=== PATIENT | female | born 1995 | race African-American/Black ===

== ENCOUNTER 2020-12-24 12:10 | Outpatient (CLI) | payer OTHER, SELFPAY | END 2020-12-24 12:11 | disposition home or self-care (01) | PROVIDERS: PCP Internal Medicine Geriatric Medicine; Visit Provider Student in an Organized Health Care Education/Training Program | DX: O20.0 Threatened abortion (principal); Z3A.00 Weeks of gestation of pregnancy not specified | CPT/HCPCS: 36415; 86850; 86900; 86901 ==

== ENCOUNTER 2020-12-28 12:41 | Outpatient (CLI) | payer OTHER, SELFPAY ==
--- NOTE | ~2020-12-28 | US_ITS ---
US OB <= 14 weeks fetus DATE: 12/28/2020 13:06 INDICATION: viability and age determination TECHNIQUE: Real-time imaging, Doppler analysis COMPARISON: None FINDINGS: The uterus measures 7.2 cm height, 3.4 cm anteroposterior and 4.9 cm width. The central end ometrial echo complex measures 3.7 mm AP dimension. No intrauterine gestational sac is identified. The ovaries are unremarkable. No pelvic mass or abnormal pelvic fluid collection is identified. IMPRESSION: No evidence of intrauterine gestational sac. Unremarkable pelvic ultrasound examination Reviewed, dictated and finalized at [facility]. Reviewed, dictated and finalized at location A. IMPRESSION: No evidence of intrauterine gestational sac. Unremarkable pelvic ul trasound examination
== END 2020-12-28 12:42 | disposition home or self-care (01) ==
PROVIDERS: PCP Internal Medicine Geriatric Medicine; Visit Provider Student in an Organized Health Care Education/Training Program
DX: Z36.87 Encounter for antenatal screening for uncertain dates (principal)
CPT/HCPCS: 76801

== ENCOUNTER 2021-01-03 17:19 | Outpatient (CLI) | payer OTHER, SELFPAY ==
[2021-01-03 18:08] LABS: Beta HCG Quantitative 6.32 mIU/ML
== END 2021-01-03 17:20 | disposition home or self-care (01) ==
PROVIDERS: PCP Internal Medicine Geriatric Medicine; Visit Provider Student in an Organized Health Care Education/Training Program
DX: O20.9 Hemorrhage in early pregnancy, unspecified (principal)
CPT/HCPCS: 36415; 84702

== ENCOUNTER 2021-01-05 17:21 | Outpatient (CLI) | payer OTHER, SELFPAY | END 2021-01-05 17:22 | disposition home or self-care (01) | LOC: ANHLAB 17:23 | PROVIDERS: PCP Internal Medicine Geriatric Medicine; Visit Provider Student in an Organized Health Care Education/Training Program | DX: R39.9 Unspecified symptoms and signs involving the genitourinary system (principal) | CPT/HCPCS: 87077; 87086; 87088 ==

== ENCOUNTER 2021-01-10 16:21 | Outpatient (CLI) | payer OTHER, SELFPAY ==
[2021-01-10 17:13] LABS: Beta HCG Quantitative < 2.39 mIU/ML
== END 2021-01-10 16:22 | disposition home or self-care (01) ==
LOC: ANHLAB 16:32
PROVIDERS: PCP Internal Medicine Geriatric Medicine; Visit Provider Student in an Organized Health Care Education/Training Program
DX: O02.1 Missed abortion (principal)
CPT/HCPCS: 36415; 84702

== ENCOUNTER 2021-02-20 17:18 | Outpatient (CLI) | payer OTHER, SELFPAY | END 2021-02-20 17:19 | disposition home or self-care (01) | PROVIDERS: PCP Internal Medicine Geriatric Medicine; Visit Provider Student in an Organized Health Care Education/Training Program | DX: N91.2 Amenorrhea, unspecified (principal) | CPT/HCPCS: 36415; 84702 ==

== ENCOUNTER 2021-02-22 17:21 | Outpatient (CLI) | payer OTHER, SELFPAY | END 2021-02-22 17:22 | disposition home or self-care (01) | LOC: ANHLAB 17:22 | PROVIDERS: PCP Internal Medicine Geriatric Medicine; Visit Provider Student in an Organized Health Care Education/Training Program | DX: N91.2 Amenorrhea, unspecified (principal) | CPT/HCPCS: 36415; 84702 ==

== ENCOUNTER 2021-02-23 17:00 | Outpatient (CLI) | payer OTHER, SELFPAY ==
--- NOTE | ~2021-02-23 | US_ITS ---
US OB <=14 wk fetus w TV DATE: 02/23/2021 17:06 INDICATION: Abdominal/pelvic cramping today. Threatened TECHNIQUE: Real-time imaging and Doppler analysis COMPARISON: 12/28/2020 obstetrical ultrasound; no evidence of intrauterine gestational sac was noted a t that time. FINDINGS: The uterus measures 9.1 cm vertical dimension, 4.5 cm anteroposterior dimension. A gestatio nal sac is identified in the lower uterine segment. Sac size is consistent with 5 weeks 4 days. Sac s ize would be consistent with 5 weeks 4 days estimated age. Yolk sac is identified. No pole or c ardiac motion is visualized. . Findings are suggestive of impending . Right ovary measures 2.6 x 2.1 x 2.4 cm. Left ovary measures 2.4 x 2 x 2 cm. There is vascular flow t o the ovaries. No pelvic mass or abnormal free pelvic fluid collection is detected. IMPRESSION: Lower uterine gestational sac with 5 week 4 day estimated gestational sac size and no vis ualized pole or cardiac motion. There is fluid in the endometrial cavity. Impending abort ion is suspected. Consider follow-up obstetrical ultrasound examination. Reviewed, dictated and finalized at [facility]. Reviewed, dictated and finalized at location [facility]. IMPRESSION: Lower uterine gestational sac with 5 week 4 day estimated gestation al sac size and no visualized pole or cardiac motion. There is flui d in the endometrial cavity. Impending is suspected. Consider follow-up obstetrical ultrasound examination.
[2021-02-23 17:17] LABS: Hematocrit 35.1 % (37.0-47.0); Hemoglobin 10.6 g/dL (12.0-15.0); Immature Platelet Fraction Pct 7.3 % (0.9-11.2); Mean Corpuscular HGB Conc 30.2 g/dl (32-36); Mean Corpuscular Hemoglobin 22.5 pg (26-34); Mean Corpuscular Volume 74.5 fl (80-100); Mean Platelet Volume 11.2 fl (7.4-10.4); Platelet Count Result 232 k/mm3 (150-375); Red Blood Count 4.71 M/mm3 (4.2-5.4); Red Cell Distribution Width 16.4 % (11.5-14.5); White Blood Count 6.8 K/mm3 (4.5-10.0)
[2021-02-26 07:04] LABS: Progesterone 8.4 ng/mL (***)
== END 2021-02-23 17:01 | disposition home or self-care (01) ==
LOC: ANHIMG 17:01
PROVIDERS: PCP Internal Medicine Geriatric Medicine; Visit Provider Student in an Organized Health Care Education/Training Program
DX: O20.0 Threatened abortion (principal)
CPT/HCPCS: 36415; 76801; 76817; 84144; 84702; 85027; 85055

== ENCOUNTER 2021-02-24 17:35 | Outpatient (CLI) | payer OTHER, SELFPAY | END 2021-02-24 17:36 | disposition home or self-care (01) | PROVIDERS: PCP Internal Medicine Geriatric Medicine; Visit Provider Student in an Organized Health Care Education/Training Program | DX: O20.0 Threatened abortion (principal) | CPT/HCPCS: 36415; 84702 ==

== ENCOUNTER 2021-03-04 13:03 | Outpatient (CLI) | payer OTHER, SELFPAY | END 2021-03-04 13:04 | disposition home or self-care (01) | LOC: ANHLAB 13:04 | PROVIDERS: PCP Internal Medicine Geriatric Medicine; Visit Provider Student in an Organized Health Care Education/Training Program | DX: R39.9 Unspecified symptoms and signs involving the genitourinary system (principal) | CPT/HCPCS: 87086 ==

== ENCOUNTER 2021-03-24 17:21 | Outpatient (CLI) | payer OTHER, SELFPAY ==
[2021-03-24 18:13] LABS: Beta HCG Quantitative < 2.39 mIU/ML
== END 2021-03-24 17:22 | disposition home or self-care (01) ==
PROVIDERS: PCP Internal Medicine Geriatric Medicine; Visit Provider Student in an Organized Health Care Education/Training Program
DX: O02.1 Missed abortion (principal)
CPT/HCPCS: 36415; 84702

== ENCOUNTER 2021-12-01 09:16 | Outpatient (CLI) | payer OTHER, SELFPAY ==
--- NOTE | 2021-12-01 09:27 | ECHO_ITS ---
Patient Info Name: Siomara Odell Age: 26 years : 1995 Gender: Female Ht: 67 in Wt: 158 lbs BSA: 1.85 m2 HR: 81 bpm BP: 126 / 88 mmHg Technical Quality: Excellent Exam Date: 12/01/2021 9:44 AM Exam Location: [facility] Patient Status: Outpatient Admit Date: 12/01/2021 Staff Ordering Physician: Aleena Tolbert MD Chief Meter Reader: Yaquelin Proctor RDCS Attending Provider: Aleena Tolbert MD Referring Physician: Tomasz LOWE; Exam Type: CA echo doppler color flow Study Info Indications O10.019 - Pre-existing essential hypertension complicating , unspecified trimester Complete two-dimensional, color flow and Doppler transthoracic echocardiogram is performed. Summary 1. Complete two-dimensional, color flow and Doppler transthoracic echocardiogram is performed. 2. Left ventricular chamber dimension is normal. 3. Left ventricular systolic function is normal, estimated at 60-65%. 4. The left ventricular diastolic function is normal. 5. E/e' 8 is minimally elevated. 6. Global longitudinal strain is normal at -18.4%. 7. Left atrial chamber dimension is mildly enlarged. 8. There is trace mitral valve regurgitation. 9. There is trace tricuspid valve regurgitation. Left Ventricle E/e' 8 is minimally elevated. Global longitudinal strain is normal at -18.4%. Left ventricular chamber dimension is normal. Left ventricular systolic function is normal, estimated at 60-65%. The left ventricular diastolic function is normal. Right Ventricle Right ventricular systolic function is normal and with normal TAPSE 2.2 cm. Right ventricular chamber dimension is normal. Left Atria Left atrial chamber dimension is mildly enlarged. Right Atria Right atrial chamber dimension is normal. Aortic Valve The aortic valve is trileaflet. There is no aortic valve stenosis. There is no aortic valve regurgitation. Pulmonic Valve There is no pulmonic regurgitation. Mitral Valve There is no mitral valve stenosis. There is trace mitral valve regurgitation. Tricuspid Valve RVSP is not calculated due to an inadequate TR jet. There is trace tricuspid valve regurgitation. Pericardium/Pleural There is no pericardial effusion. Inferior Vena Cava Normal inferior vena cava with >50% collapse upon inspiration consistent with normal right atrial pressure, 5 mmHg. Aorta The aortic root size at the sinus of Valsalva is normal. Left Ventricular Outflow Tract Name Value Normal LVOT 2D LVOT Diameter 2.0 cm LVOT Doppler LVOT Peak Gradient 4 mmHg LVOT Mean Gradient 2 mmHg LVOT VTI 17 cm LVOT VTI/AV VTI Ratio 0.9 LVOT Stroke Volume 52 ml LVOT CO 4.5 l/min LVOT CI 2.4 l/min/m2 Pulmonic Valve Name Value Normal
--- NOTE | 2021-12-01 09:50 | ECG_ITS ---
Measurements Intervals [place] Rate: 81 P: 6 SD: 146 QRS: 25 QRSD: 89 T: 30 QT: 365 QTc: 426 Interpretive Statements SINUS RHYTHM WITH SINUS ARRHYTHMIA BASELINE WANDER- I, II, V3 NORMAL ECG Electronically Signed On 12-01-2021 16:43:08 CDT by Natan Fuller D.O.
== END 2021-12-01 09:17 | disposition home or self-care (01) ==
LOC: ANHCARD 09:19
PROVIDERS: PCP Internal Medicine Geriatric Medicine; Visit Provider Student in an Organized Health Care Education/Training Program
DX: O10.913 Unspecified pre-existing hypertension complicating pregnancy, third trimester (principal); I49.9 Cardiac arrhythmia, unspecified; Z3A.30 30 weeks gestation of pregnancy
CPT/HCPCS: 93005; 93306

== ENCOUNTER 2022-01-11 12:26 | Outpatient (RCR) | payer OTHER, SELFPAY ==
[2022-01-04 17:56] VITALS: BP 127/81; PULSE 87
--- NOTE | ~2022-01-11 | US_ITS ---
EXAMINATION: US OB BPP wo non-stress DATE: 01/11/2022 14:07 INDICATION: Hypertension during third trimester TECHNIQUE: Real-time pelvic ultrasound was performed. The interpreting radiologist was not present fo r the study. COMPARISON: None. FINDINGS: There is a single living fetus in vertex presentation. The placenta is posterior. heart rate is 142 beats per minute (bpm). The amniotic fluid index is 11.3 cm which is normal. Biophysical profile performed by the technologist: breathing (30 sec sustained breathing in 30 minutes): 2 out of 2 movement (3 gross body movements in 30 minutes): 2 out of 2 tone (one episode of ecudryz-xxtbkyopw-wknjbcx limb movement): 2 out of 2 Amniotic fluid pocket (2 cm): 2 out of 2 Total score: 8 out of 8 IMPRESSION: 1. Single living fetus in vertex presentation. 2. Biophysical profile 8 out of 8. Reviewed, dictated and finalized at location A.
[2022-01-11 13:02] VITALS: BP 132/85; PULSE 104
== END 2022-02-07 10:13 | disposition home or self-care (01) ==
LOC: ANHOBOP 12:26
PROVIDERS: PCP Internal Medicine Geriatric Medicine; Visit Provider Student in an Organized Health Care Education/Training Program
DX: O16.3 Unspecified maternal hypertension, third trimester (principal); Z3A.35 35 weeks gestation of pregnancy
CPT/HCPCS: 59025; 76819

== ENCOUNTER 2022-01-14 16:12 | Inpatient (IN) | payer OTHER, SELFPAY ==
[2022-01-14] VITALS (16 sets, daily range): BP systolic 115–141; BP diastolic 68–97; PULSE 76–100; TEMP 36.8–37.3; BMI 27.4
--- NOTE | 2022-01-14 17:27 | P.PNAN_ITS ---
Anes - Eval Pre Procedure Procedure: labor epidural Date/Time: 01/14/22 17:27 Surgeon: surya Preop Diagnosis: pain during labor Pre Op Diagnosis: iol Patient Data Age: 26 Gender: F Height: Weight: Last Vital Signs Pulse 83 01/14/22 17:15 BP 141/94 H 01/14/22 17:15 Allergies Allergy/AdvReac Type Severity Reaction Status Date / Time Sulfa (Sulfonamide Allergy Unknown Rash Verified 01/13/22 14:44 Antibiotics) Home Medications Medication Instructions Recorded Confirmed Type acetaminophen 500 mg tablet 500 mg PO Q6H PRN 07/27/21 History prenat.vits,mai,jry-kpjz-kxmbi 1 tablet PO DAILY 07/27/21 History blood pressure monitor #1 ea 10/06/21 10/06/21 Rx ferrous sulfate 325 mg (65 mg 325 mg PO DAILY #90 tabs 11/15/21 Rx iron) tablet Patient hx anesthesia problems: none Family hx anesthesia problems: none Results Review: All pre-operative results and documents have been reviewed as part of the pre- operative evaluation. [facility] Past Medical History Medical History Healthy adult History of miscarriage x 2 12/2020 Surgical History Surgical History No pertinent past surgical history Family History Family History Mother Patient's mother is in good health Social History Social History Smoking status: Never smoker Second hand tobacco smoke exposure: No Alcohol intake: never Substance use: never Substance use type: marijuana Gender identity (if verbalized by the patient): Female Spiritual care concerns: No Exam Day of Procedure 01/14/22 17:27
[2022-01-14 17:31] LABS: Basophils Absolute Auto 0.1 K/mm3 (0.0-0.1); Basophils Percent Auto 0.7 % (0.2-1.2); Eosinophils Absolute Auto 0.1 K/mm3 (0-0.3); Eosinophils Percent Auto 0.9 % (0-4.4); Hemoglobin 9.7 g/dL (12.0-15.0); Immature Granulocyte Absolute 0.03 K/mm3 (0.00-0.031); Immature Granulocyte Percent A 0.4 % (0-0.5); Immature Platelet Fraction Pct 14.7 % (0.9-11.2); Lymphocytes Absolute Auto 1.71 K/mm3 (0.9-3.2); Lymphocytes Percent Auto 22.7 % (18.3-44.2); Mean Corpuscular HGB Conc 30.3 g/dl (32-36); Mean Corpuscular Hemoglobin 21.9 pg (26-34); Mean Corpuscular Volume 72.2 fl (80-100); Monocytes Absolute Auto 0.9 K/mm3 (0.1-0.6); Monocytes Percent Auto 11.7 % (2.6-8.5); Neutrophils Absolute Auto 4.8 K/mm3 (1.3-6.7); Neutrophils Percent Auto 63.6 % (45.5-73.1); Platelet Count Result 147 k/mm3 (150-375); Red Blood Count 4.43 M/mm3 (4.2-5.4); Red Cell Distribution Width 16.7 % (11.5-14.5); White Blood Count 7.5 K/mm3 (4.5-10.0)
[2022-01-14] MEDS: DINOPROSTONE 10 MG VAG INSERT VAGINAL (17:53)
[2022-01-14 17:56] LABS: Alanine Aminotransferase 12 U/L (6-35); Albumin Level 3.4 g/dL (3.5-5.1); Anion Gap 5 mmol/L (8-16); Anisocytosis 3+ (NORMAL); Aspartate Amino Transferase 20 U/L (14-36); Bilirubin,Total 0.4 mg/dL (0.2-1.3); Blood Urea Nitrogen 16 mg/dL (7-17); Carbon Dioxide 22 mmol/L (22-30); Chloride 108 mmol/L (98-107); Estimated Glomerular Filt Rate > 60; Glucose 80 mg/dL (65-110); Potassium 3.8 mmol/L (3.4-5.0); Sodium 135 mmol/L (137-145); Uric Acid 4.7 mg/dL (2.5-7.5)
[2022-01-14 17:57] LABS: Hypochromasia 1+ (NORMAL); Macrocytosis 1+ (NORMAL)
[2022-01-14 18:23] LABS: Alkaline Phosphatase 2037 U/L (38-126)
--- NOTE | 2022-01-14 18:56 | LDADM ---
This patient, Siomara Odell, was admitted to Labor/Delivery/Recovery 108 on 01/14/22 at 16:12. Plans for labor, pain management and were discussed with patient. Patient/family oriented to hospital policies and general routines including ID bracelet, bed and alarms, visiting hours, pain management, procedures, bathroom and other care routines, personal items, smoking policy, room service/diet and guest tray routines, security routines, and visiting hours. Patient/Family are encouraged to report perceived risks to care and to ask questions if they do not understand what they are told or what they should do. See OBIX for further documentation.
[2022-01-14 20:30] LABS: Amphetamine Screen Urine Negative (Negative); Barbiturate Screen Urine Negative (Negative); Benzodiazepines Screen Urine Negative (Negative); Cannabinoid Screen Urine Negative (Negative); Cocaine Screen Urine Negative (Negative); Methadone Screen Urine Negative (Negative); Opiate Screen Urine Negative (Negative); Phencyclidine Screen Urine Negative (Negative)
[2022-01-15] VITALS (202 sets, daily range): BP systolic 109–163; BP diastolic 66–111; PULSE 70–144; TEMP 36.6–37.4; O2SAT 93–100
[2022-01-15] MEDS: OXYTOCIN 30 UNITS/NS 500 ML 30 UNITS/500 ML BAG IV CONT (06:55)
[2022-01-15] MEDS: LACTATED RINGERS 1,000 ML 125 ML IV CONT ×3 (06:55→20:37)
[2022-01-15 09:17] LABS: Rapid Plasma Reagin Non-Reactive (NonReactive)
--- NOTE | 2022-01-15 10:08 | PM.IMHP ---
H&P: HPI History of Present Illness Date/Time: 01/15/22 10:08 Chief Complaint: Patient is a 26 y/o at 37 weeks by LMP 04/30/2021 with an EDC 02/04/2022 consistent with 8 week ultrasound. She is here for MIL with cervidil due to chronic hypertension and IUGR (5%) with recommendations for delivery at 37 weeks. She has been getting reassuring surveillance testing. PNC also significant for anemia. she is on iron supplementation. Labs reviewed. GBS neg. She denies headaches, scotomata or RUQ pain. Labs reviewed. Platelets 147. Review of Systems Review of Systems: All systems reviewed & are unremarkable except as noted in HPI and below Constitutional: Constitutional: Reports no additional constitutional complaints and Denies headache(s) Eyes: Eyes: Denies spots in vision ENT: Reports system reviewed and no additional complaints, except as documented and Denies headache(s) Cardiovascular: Cardiovascular: Denies chest pain and Denies dyspnea Respiratory: Respiratory: Denies dyspnea Gastrointestinal: Gastrointestinal: Reports no additional gastrointestinal complaints Genitourinary: Genitourinary: Reports amenorrhea Musculoskeletal: Musculoskeletal: Reports no additional musculoskeletal complaints Integumentary/Breasts: Skin/Breast: Denies breast mass and Denies rash Neurologic: Denies headache(s) Psychiatric: Psychiatric: Reports no additional psychiatric complaints PMFSH Past Medical History Medical History Healthy adult History of miscarriage x 2 12/2020 Surgical History Surgical History No pertinent past surgical history Family History Family History Mother Patient's mother is in good health Social History Social History Smoking status: Never smoker Second hand tobacco smoke exposure: No Alcohol intake: never Substance use: never Substance use type: marijuana Gender identity (if verbalized by the patient): Female Spiritual care concerns: No Meds Home Medications and Allergies Home Medications Medication Instructions Recorded Confirmed Type acetaminophen 500 mg tablet 500 mg PO Q6H PRN 07/27/21 History prenat.vits,mai,apu-ebgv-eotrx 1 tablet PO DAILY 07/27/21 History blood pressure monitor #1 ea 10/06/21 10/06/21 Rx ferrous sulfate 325 mg (65 mg 325 mg PO DAILY #90 tabs 11/15/21 Rx iron) tablet Allergies Allergy/AdvReac Type Severity Reaction Status Date / Time Sulfa (Sulfonamide Allergy Unknown Rash Verified 01/13/22 14:44 Antibiotics) Vital Signs Vital Signs - 24 hr 01/14/22 16:32 01/14/22 16:45 01/14/22 17:00 Temperature Pulse Rate 86 96 93 Blood Pressure 141/97 H 121/80 141/96 H Oxygen Delivery 01/14/22 17:15 01/14/22 17:30 01/14/22 18:00 Temperature Pulse Rate 83 82 79 Blood Pressure 141/94 H 141/94 H 134/95 H Oxygen Delivery 01/14/22 18:15 01/14/22 18:30 01/14/22 18:45 Temperature 98.2 F Pulse Rate 80 86 94 Blood Pressure 136/93 H 130/87 115/91 H Oxygen Delivery 01/14/22 19:00 01/14/22 19:15 01/14/22 19:30 Temperature Pulse Rate 100 92 87 Blood Pressure 135/80 127/89 139/94 H Oxygen Delivery 01/14/22 19:45 01/14/22 23:38 01/14/22 23:45 Temperature Pulse Rate 78 76 88 Blood Pressure 141/90 H 138/93 H 118/68 Oxygen Delivery 01/15/22 00:00 01/15/22 00:15 01/15/22 01:00 Temperature Pulse Rate 84 83 89 Blood Pressure 129/79 128/79 139/93 H Oxygen Delivery 01/15/22 03:55 01/14/22 22:30 01/15/22 02:30 Temperature 99.1 F 99.1 F Pulse Rate 90 Blood Pressure 134/97 H Oxygen Delivery 01/15/22 05:53 01/15/22 05:55 01/15/22 07:04 Temperature 98.9 F Pulse Rate 93 93 Blood Pressure 136/96 H 140/94 H Oxygen Delivery
--- NOTE | 2022-01-15 10:26 | PM.OBPNLAB ---
Pain Control Date/time seen: 01/15/22 1026 FHT 135, cat 1, ctx q 2-3 mild, cervix 1.5/70/-2, AROM, clear. Continue pitocin induction.
--- NOTE | 2022-01-15 22:48 | PM.OBPRVD ---
OB - Delivery Note Procedure Delivery date: 01/15/22 Procedure: A 26-year-old now who presented to labor and delivery on the evening of 01/14/2022 at 37 weeks gestation for scheduled induction labor secondary to chronic hypertension and intrauterine growth restriction. Initial cervical exam was approximately fingertip dilated. Induction of labor was begun with Cervidil. Cervidil was placed and remained in place for approximately 12 hours after which it was removed. Cervical exam was approximately 1-2 cm dilated. Pitocin was started for labor augmentation. Artificial rupture of membranes was performed at 10:03 a.m. Clear amniotic fluid was noted. Pitocin was continuously titrated throughout the remainder of the morning, afternoon, and evening. Patient became uncomfortable and requested an epidural for pain management which was placed without difficulty. Patient continued to make progressive cervical change. An IUPC was placed for enhanced monitoring. Patient was noted to be fully dilated at 9:40 p.m. Patient was encouraged to push and found to be pushing well. She was prepped and draped for delivery. At 10:33 p.m., patient delivered head atraumatically and without difficulty in JARVIS presentation. Occiput restituted to maternal left side. With subsequent push, the infant's neck, shoulders, and rest of body also delivered without difficulty. Infant was crying spontaneously. Infant's nose and mouth were suctioned with bulb suction. Infant was placed on maternal abdomen where care was assumed by awaiting nursing staff. Delayed cord clamping was performed for approximately 60 seconds. The cord was clamped and cut. A segment of cord was collected for cord gases. Cord blood was collected. The placenta was delivered spontaneous and intact. On inspection, no lacerations were noted. Uterine fundus was noted be firm with massage. Estimated blood loss for entire delivery was 200 cc. Infant was a liveborn male infant, Apgars 9 and 9, weighing 5 lbs. 1 oz. Both mother and baby doing well at end of delivery. Events: Chronic Hypertension and Intrauterine Growth Restriction (IUGR) Induction method: Per Cervidil Protocol Delivery augmentation: Rupture of Membranes and Pitocin Delivery monitor: External FHT, External Uterine and Internal Uterine Route of delivery: Laceration Description: None Specimen: Yes (placenta and cord, cord blood, and cord gases) Quantitative Blood Loss (ml): 200 Anesthesia type: Epidural Disposition: Floor Complications: No immediate complications [place] Baby Date of : 01/15/22 Time of : 22:33 Weeks of gestation at delivery: 37 (37.1) gender: Male Weight (pounds): 5 Weight (ounces): 1 presentation: vertex position: Left Occiput Anterior Placenta delivery description: Spontaneous Cord Vessel Description: 3 Vessels and Delayed Cord Clamping (x60s) score one minute: 9 score five minutes: 9 AMG Delivery Billing Delivery Delivery: Delivery Charge
[2022-01-15] MEDS: OXYTOCIN 30 UNITS/NS 500 ML 30 UNITS/500 ML BAG 125 UNITS IV CONT (23:00)
[2022-01-16] VITALS (11 sets, daily range): BP systolic 129–149; BP diastolic 85–107; PULSE 80–123; RESP 16–18; TEMP 36.4–37.5; O2SAT 98–100
[2022-01-16] MEDS: WITCH HAZEL 40 PADS 1 PAD TOPICAL (00:46)
[2022-01-16] MEDS: BENZOCAINE 20% AER SPR (*SP) 56 GM CAN 1 SPRAY TOPICAL (00:46)
--- NOTE | 2022-01-16 01:01 | OBPPTRN ---
Patient transferred to post room # 285 via wheelchair. Support person present. Oriented to unit, room, information board, rooming in, admission packet and security measures. Patient verbalizes understanding.
[2022-01-16] MEDS: IBUPROFEN 600 MG TABLET PO ×2 (01:28→08:16)
[2022-01-16 04:47] LABS: Hematocrit 33.4 % (37.0-47.0); Hemoglobin 9.7 g/dL (12.0-15.0)
[2022-01-16] MEDS: POLYSACCHARIDE IRON COMPLEX 150 MG CAPSULE PO ×2 (08:16→17:00)
[2022-01-16] MEDS: DOCUSATE SODIUM 100 MG CAPSULE PO ×2 (08:16→17:00)
[2022-01-16] MEDS: MULTIVIT/MIN/PREN/FOL AC/IRON TABLET 1 TAB PO (08:16)
--- NOTE | 2022-01-16 08:26 | P.PNOB_ITS ---
OB - PN: Subj Subjective Date/time seen: 01/16/22 08:26 Patient doing well this morning. Denies any abdominal or pelvic pain. Minimal lochia. Ambulating without difficulty. Voiding well. Denies any headache, chest pain, shortness of breath, nausea, vomiting, right upper quadrant tenderness, or visual disturbances. OB - PN: Obj Data Labs CBC & Chem 7: 01/16/22 04:37 01/14/22 17:22 Labs: Laboratory Results - last 24 hr 01/14/22 01/16/22 17:22 04:37 Hgb 9.7 L Hct 33.4 L RPR Non-reactive OB - PN A/P Assessment and Plan (1) Normal spontaneous vaginal delivery: Code(s): O80 - Encounter for full-term uncomplicated delivery Status: Acute Assessment and Plan: PPD#1 doing well continue routine care (2) Chronic hypertension in : Code(s): O10.919 - Unspecified pre-existing hypertension complicating , unspeci fied trimester Status: Acute Assessment and Plan: pt with CHTN labs ordered today pt asymptomatic will continue to monitor Time Spent With Patient Time: Total time spent is greater than 50% in coordination of care (as documented) at patient's floor/unit and/or counseling patient: Review of Systems Review of Systems: All systems reviewed & are unremarkable except as noted in HPI and below Exam Const: General: cooperative, healthy appearing, comfortable and no acute distress GI: Inspection: non-distended GI Palp: Yes Soft to palpation and No Tenderness to palpation present (GI) Other: fundus firm below umbilicus Extrem: Right lower extremity: no edema Left lower extremity: no edema Other: no calf tenderness
--- NOTE | 2022-01-16 08:30 | PC.NURSE ---
Breast pump provided due to maternal preference. Instructions given on cleaning, care, usage, that there should be no pain, pumping schedule for milk production, collection, and storage of human milk. Patient was assessed for correct placement, flange size, to pump for comfort and nipple stretching/stimulation for adequate milk production every 3 hours (8 times in 24 hours).
[2022-01-16 08:55] LABS: Basophils Percent Auto 0.2 % (0.2-1.2); Eosinophils Percent Auto 0.3 % (0-4.4); Hematocrit 29.3 % (37.0-47.0); Hemoglobin 8.9 g/dL (12.0-15.0); Immature Granulocyte Absolute 0.04 K/mm3 (0.00-0.031); Immature Granulocyte Percent A 0.3 % (0-0.5); Immature Platelet Fraction Pct 12.3 % (0.9-11.2); Lymphocytes Absolute Auto 1.99 K/mm3 (0.9-3.2); Mean Corpuscular HGB Conc 30.4 g/dl (32-36); Mean Corpuscular Hemoglobin 21.8 pg (26-34); Mean Corpuscular Volume 71.6 fl (80-100); Monocytes Absolute Auto 1.4 K/mm3 (0.1-0.6); Monocytes Percent Auto 11.7 % (2.6-8.5); Neutrophils Absolute Auto 8.3 K/mm3 (1.3-6.7); Neutrophils Percent Auto 70.5 % (45.5-73.1); Platelet Count Result 127 k/mm3 (150-375); Red Blood Count 4.09 M/mm3 (4.2-5.4); Red Cell Distribution Width 16.8 % (11.5-14.5); White Blood Count 11.7 K/mm3 (4.5-10.0)
[2022-01-16 09:03] LABS: Uric Acid 4.8 mg/dL (2.5-7.5)
[2022-01-16 09:11] LABS: Alanine Aminotransferase 12 U/L (6-35); Albumin Level 2.5 g/dL (3.5-5.1); Anion Gap 3 mmol/L (8-16); Aspartate Amino Transferase 31 U/L (14-36); Bilirubin,Total 0.5 mg/dL (0.2-1.3); Blood Urea Nitrogen 8 mg/dL (7-17); Calcium 8.2 mg/dL (8.4-10.2); Carbon Dioxide 21 mmol/L (22-30); Chloride 111 mmol/L (98-107); Estimated CRCL calculation 111 ml/min; Estimated Glomerular Filt Rate > 60; Glucose 71 mg/dL (65-110); Potassium 3.5 mmol/L (3.4-5.0); Sodium 135 mmol/L (137-145)
--- NOTE | 2022-01-16 09:34 | PC.NURSE ---
0849 - Reported received from primary RN that mother is eating breakfast, then will initiate pumping as Nicole has given a pump to mother this morning to use.
[2022-01-16 09:47] LABS: Alkaline Phosphatase 1584 U/L (38-126)
[2022-01-16 11:31] LABS: HIV 1/2 Ab P24 Ag Result Negative (Negative)
--- NOTE | 2022-01-16 14:18 | WPDANLDPN2 ---
Anes-Prog Note L&D Date/Time: 01/16/22 14:18 Neuro status: Neuro function grossly intact. Vital Signs: Last Vital Signs Temp 36.4 C L 01/16/22 11:53 Pulse 80 01/16/22 11:53 Resp 18 01/16/22 11:53 BP 129/90 01/16/22 11:53 Pulse Ox 100 01/16/22 11:53 O2 Del Method Room Air 01/16/22 08:10 Pain score (VAS): 0 I/O: Intake & Output 01/15/22 01/16/22 01/16/22 23:59 07:59 15:59 Intake Total 1500 1000 300 Output Total 700 Balance 1500 1000 -400 Patient feedback: Patient satisfied with anesthetic care.
[2022-01-17 04:59] VITALS: BP 128/89
--- NOTE | 2022-01-17 08:35 | PM.OBPNVD ---
OB - PN: Subj Subjective Date/time seen: 01/17/22 08:35 Patient doing well. Denies any pelvic pain or cramping. Minimal lochia. Ambulating without difficulty. Voiding well. Denies any headache, chest pain, shortness of breath, nausea, vomiting, right upper quadrant tenderness, or visual disturbances. OB - PN: Obj Data Labs CBC & Chem 7: 01/16/22 08:46 01/16/22 08:46 Labs: Laboratory Results - last 24 hr 01/16/22 01/16/22 01/16/22 08:46 08:46 08:46 WBC 11.7 H RBC 4.09 L Hgb 8.9 L Hct 29.3 L MCV 71.6 L MCH 21.8 L MCHC 30.4 L RDW 16.8 H Plt Count 127 L MPV TNP Immature Gran % (Auto) 0.3 Neut % (Auto) 70.5 Lymph % (Auto) 17.0 L [place] % (Auto) 11.7 H Eos % (Auto) 0.3 Baso % (Auto) 0.2 Lymph # (Auto) 1.99 [place] # (Auto) 1.4 H Eos # (Auto) 0.0 Baso # (Auto) 0.0 Abs Immat Gran (auto) 0.04 H Absolute Neuts (auto) 8.3 H Absolute Nucleated RBC 0.0 Nucleated RBC % 0.0 % Immature Plt Fraction 12.3 H Sodium 135 L Potassium 3.5 Chloride 111 H Carbon Dioxide 21 L Anion Gap 3 L BUN 8 D Creatinine 0.70 Estim Creat Clear Calc 111 Estimated GFR > 60 Glucose 71 Uric Acid 4.8 Calcium 8.2 L Total Bilirubin 0.5 AST 31 ALT 12 Alkaline Phosphatase 1584 H Total Protein 5.0 L Albumin 2.5 L HIV 1&2 Ab/P24 Ag 4thGn 01/16/22 08:46 WBC RBC Hgb Hct MCV MCH MCHC RDW Plt Count MPV Immature Gran % (Auto) Neut % (Auto) Lymph % (Auto) [place] % (Auto) Eos % (Auto) Baso % (Auto) Lymph # (Auto) [place] # (Auto) Eos # (Auto) Baso # (Auto) Abs Immat Gran (auto) Absolute Neuts (auto) Absolute Nucleated RBC Nucleated RBC % % Immature Plt Fraction Sodium Potassium Chloride Carbon Dioxide Anion Gap BUN Creatinine Estim Creat Clear Calc Estimated GFR Glucose Uric Acid Calcium Total Bilirubin AST ALT Alkaline Phosphatase Total Protein Albumin HIV 1&2 Ab/P24 Ag 4thGn Negative OB - PN A/P Assessment and Plan (1) Normal spontaneous vaginal delivery: Code(s): O80 - Encounter for full-term uncomplicated delivery Status: Acute Assessment and Plan: PPD#2 continue routine care emergency precautions reviewed f/u in office in 1 week for BP check (2) Chronic hypertension in : Code(s): O10.919 - Unspecified pre-existing hypertension complicating , unspecified trimester Status: Acute Assessment and Plan: BP mildly elevated overnight, WNL this AM asymptomatic RTO for BP check in 1 week emergency precautions reviewed Time Spent With Patient Time: Total time spent is greater than 50% in coordination of care (as documented) at patient's floor/unit and/or counseling patient: Review of Systems Review of Systems: All systems reviewed & are unremarkable except as noted in HPI and below Exam Const: General: cooperative, healthy appearing, comfortable and no acute distress GI: Inspection: non-distended GI Palp: Yes Soft to palpation and No Tenderness to palpation present (GI) Other: fundus firm below umbilicus Extrem: Right lower extremity: no edema Left lower extremity: no edema Other: no calf tenderness
--- NOTE | 2022-01-17 08:39 | PM.OBDSVD ---
DS: Admitting Diagnosis Discharge Date 01/17/22 Admitting Diagnosis IUP at 37w gestation IUGR Chronic hypertension OB - DS: Summary OB Procedures : None OB Procedures Intrapartum: Spontaneous Vag Delivery OB Procedures: : None Time Spent with Patient Time attestation: Total time spent providing and/or coordinating discharge services: DS: Data Data Completed and Pending Pending studies at discharge: Pending at discharge 01/15/22 22:36 Surgical [PTH] Routine Labs on day of discharge: Labs from last 24 hours 01/16/22 01/16/22 01/16/22 08:46 08:46 08:46 WBC RBC Hgb Hct MCV MCH MCHC RDW Plt Count MPV Immature Gran % (Auto) Neut % (Auto) Lymph % (Auto) [place] % (Auto) Eos % (Auto) Baso % (Auto) Lymph # (Auto) [place] # (Auto) Eos # (Auto) Baso # (Auto) Abs Immat Gran (auto) Absolute Neuts (auto) Absolute Nucleated RBC Nucleated RBC % % Immature Plt Fraction Sodium 135 L Potassium 3.5 Chloride 111 H Carbon Dioxide 21 L Anion Gap 3 L BUN 8 D Creatinine 0.70 Estim Creat Clear Calc 111 Estimated GFR > 60 Glucose 71 Uric Acid 4.8 Calcium 8.2 L Total Bilirubin 0.5 AST 31 ALT 12 Alkaline Phosphatase 1584 H Total Protein 5.0 L Albumin 2.5 L HIV 1&2 Ab/P24 Ag 4thGn Negative 01/16/22 08:46 WBC 11.7 H RBC 4.09 L Hgb 8.9 L Hct 29.3 L MCV 71.6 L MCH 21.8 L MCHC 30.4 L RDW 16.8 H Plt Count 127 L MPV TNP Immature Gran % (Auto) 0.3 Neut % (Auto) 70.5 Lymph % (Auto) 17.0 L [place] % (Auto) 11.7 H Eos % (Auto) 0.3 Baso % (Auto) 0.2 Lymph # (Auto) 1.99 [place] # (Auto) 1.4 H Eos # (Auto) 0.0 Baso # (Auto) 0.0 Abs Immat Gran (auto) 0.04 H Absolute Neuts (auto) 8.3 H Absolute Nucleated RBC 0.0 Nucleated RBC % 0.0 % Immature Plt Fraction 12.3 H Sodium Potassium Chloride Carbon Dioxide Anion Gap BUN Creatinine Estim Creat Clear Calc Estimated GFR Glucose Uric Acid Calcium Total Bilirubin AST ALT Alkaline Phosphatase Total Protein Albumin HIV 1&2 Ab/P24 Ag 4thGn Discharge Plan Discharge Attending physician on discharge: Aleena Tolbert Discharging Clinician: Aleena Tolbert Anticipated Discharge Date/Time: 01/17/22 08:40 Patient Disposition: Home, Self-Care Activity: as tolerated and pelvic rest Diet: regular Discharge Instructions: Call office ([phone]) to schedule a blood pressure check in 1 week and a visit in 4-6 weeks. You may take Ibuprofen 600mg every 6 hours as needed for pain. Pain medication may make you constipated. It may be helpful to take an qohs-boh-zfqgsie stool softener, such as Colace and/or Senokot, along with the pain medication to help lessen constipation. Call office or go to ED for pain not controlled with medication, headache, chest pain, shortness of breath, fever, chills, persistent nausea or vomiting, severe abdominal pain, heavy vaginal bleeding >2 pads/hour, foul vaginal discharge or odor, or problems with your breasts. Patient Instructions: Antibiotic Form Stand Alone Forms: General Discharge Information Follow-up/Referrals: Aleena Tolbert MD [Physician] - Discharge Medications: Continued (DME) blood pressure monitor Kit See Rx Instructions .Route Qty: 1 0RF Rx Instructions: As directed prenat.vits,mai,uwd-rryo-mmkvd Tablet 1 tablet PO DAILY acetaminophen 500 mg tablet 500 mg PO Q6H PRN ferrous sulfate 325 mg (65 mg iron) tablet 325 mg PO DAILY Qty: 90 0RF Date of admission: 01/14/22 16:12 Primary Care Provider: Laly,Viky Admitting Provider: Aleena Tolbert Attending physician on admission: Aleena Tolbert Condition: Stable
[2022-01-17 10:10] VITALS: BP 137/99; TEMP 36.8
[2022-01-17] MEDS: DOCUSATE SODIUM 100 MG CAPSULE PO (10:12)
[2022-01-17] MEDS: MULTIVIT/MIN/PREN/FOL AC/IRON TABLET 1 TAB PO (10:12)
[2022-01-17] MEDS: POLYSACCHARIDE IRON COMPLEX 150 MG CAPSULE PO (10:12)
--- NOTE | 2022-01-17 11:45 | PC.NURSE ---
Patient viewed the discharge video Mother & Baby Care, The First Two Weeks . Patient was given the opportunity and encouraged to ask questions. Patient verbalized understanding of information shared and has been given the mother/baby guide for home reference.
--- NOTE | 2022-01-17 12:45 | PC.NURSE ---
0940 - Mother wakes from sleeping after RN knocked and introductions were made. There is a pump in the room that looks set up and used along with a used bottle of formula. Resources provided for inpatient and outpatient services using a resource guide and mom/baby guide. Mother voiced understanding of information and will call if there is a request for assistance. Reported to primary RN.
[2022-01-18 11:21] VITALS: BP 140/97; PULSE 80; RESP 20; TEMP 37; O2SAT 99
== END 2022-01-17 12:11 | disposition home or self-care (01) | DRG 806 ==
LOC: ANHLDR 16:16 → ANHOB2 01-16 01:09
PROVIDERS: Admitting Provider Student in an Organized Health Care Education/Training Program; PCP Internal Medicine Geriatric Medicine; Visit Provider Student in an Organized Health Care Education/Training Program
DX: O36.5930 Maternal care for other known or suspected poor fetal growth, third trimester, not applicable or unspecified (principal); O10.92 Unspecified pre-existing hypertension complicating childbirth; Z37.0 Single live birth; O99.02 Anemia complicating childbirth; O76 Abnormality in fetal heart rate and rhythm complicating labor and delivery; Z3A.37 37 weeks gestation of pregnancy
CPT/HCPCS: 36415; 80053; 80307; 84550; 85014; 85018; 85025; 85055; 86592; 86703; 86850; 86900; 86901; 88307; A9270; G0432; J2590; J2795; J7120

== ENCOUNTER 2022-08-15 14:27 | Outpatient (CLI) | payer OTHER, SELFPAY ==
[2022-08-15 14:50] VITALS: BP 131/83; PULSE 91
[2022-08-15 14:57] LABS: Basophils Percent Auto 0.3 % (0.2-1.2); Eosinophils Percent Auto 0.4 % (0-4.4); Hematocrit 33.4 % (37.0-47.0); Hemoglobin 10.2 g/dL (12.0-15.0); Immature Granulocyte Absolute 0.01 K/mm3 (0.00-0.031); Immature Granulocyte Percent A 0.1 % (0-0.5); Immature Platelet Fraction Pct 10.2 % (0.9-11.2); Lymphocytes Absolute Auto 1.45 K/mm3 (0.9-3.2); Lymphocytes Percent Auto 20.7 % (18.3-44.2); Mean Corpuscular HGB Conc 30.5 g/dl (32-36); Mean Corpuscular Hemoglobin 22.6 pg (26-34); Mean Corpuscular Volume 74.1 fl (80-100); Monocytes Absolute Auto 0.8 K/mm3 (0.1-0.6); Monocytes Percent Auto 11.9 % (2.6-8.5); Neutrophils Absolute Auto 4.7 K/mm3 (1.3-6.7); Neutrophils Percent Auto 66.6 % (45.5-73.1); Platelet Count Result 162 k/mm3 (150-375); Red Blood Count 4.51 M/mm3 (4.2-5.4); Red Cell Distribution Width 15.9 % (11.5-14.5)
[2022-08-15 15:00] VITALS: BP 118/77; PULSE 88
[2022-08-15 15:05] LABS: Alanine Aminotransferase 17 U/L (6-35); Albumin Level 3.9 g/dL (3.5-5.1); Alkaline Phosphatase 88 U/L (38-126); Anion Gap 4 mmol/L (8-16); Aspartate Amino Transferase 20 U/L (14-36); Bilirubin,Total 0.5 mg/dL (0.2-1.3); Blood Urea Nitrogen 12 mg/dL (7-17); Calcium 8.7 mg/dL (8.4-10.2); Carbon Dioxide 26 mmol/L (22-30); Chloride 108 mmol/L (98-107); Estimated Glomerular Filt Rate > 60; Glucose 82 mg/dL (65-110); Potassium 3.8 mmol/L (3.4-5.0); Sodium 138 mmol/L (137-145); Uric Acid 3.2 mg/dL (2.5-7.5)
[2022-08-15 15:09] LABS: Creatinine Urine 269.7 mg/dL; Total Protein Urine Random 6 mg/dL; Ur Ttl Prot Creatinine Ratio 0.02 mg/mg (0-0.20)
[2022-08-15 15:15] VITALS: BP 122/81; PULSE 89
[2022-08-15 15:20] LABS: Platelet Estimate Adequate (Adequate)
[2022-08-15 15:23] LABS: Schistocytes Rare (NORMAL)
[2022-08-15 15:24] LABS: Anisocytosis 2+ (NORMAL); Hypochromasia 1+ (NORMAL); Microcytosis 1+ (NORMAL)
[2022-08-15 15:30] VITALS: BP 119/84; PULSE 81
[2022-08-15 17:15] LABS: Appearance Urine Slightly Cloudy (Clear); Bilirubin Urine Negative (Negative); Blood Urine Negative (Negative); Color Urine Yellow (Yellow); Glucose Urine UA Negative (Negative); Ketones Urine Negative (Negative); Leukocyte Esterase Ur Negative LEU/UL (NEGATIVE); Nitrate Urine Negative (Negative); Protein Urine 1+ mg/dL (Negative); Specific Grav Ur 1.025 (1.001-1.035); Urobilinogen Urine 0.2 mg/dL (<2.0)
[2022-08-15 17:50] LABS: Add Urine Microscopic? YES
[2022-08-15 17:51] LABS: RBC Urine None seen /hpf (0-2)
[2022-08-15 17:52] LABS: Squamous Epithelial Cell Urine Few /hpf (Few); WBC Urine 0-3 /hpf (0-3)
[2022-08-15 17:53] LABS: Bacteria Urine Trace /hpf
== END 2022-08-15 15:40 | disposition home or self-care (01) ==
LOC: ANHOBOP 14:31 → ANHOBPP 14:31
PROVIDERS: Visit Provider Obstetrics & Gynecology
DX: O13.9 Gestational [pregnancy-induced] hypertension without significant proteinuria, unspecified trimester (principal); Z3A.00 Weeks of gestation of pregnancy not specified
CPT/HCPCS: 36415; 80053; 81001; 82570; 84156; 84550; 85025; 85055; 87086; 87088; 99199

== ENCOUNTER 2022-09-28 11:00 | Outpatient (CLI) | payer OTHER, SELFPAY ==
[2022-09-28 12:35] LABS: Basophils Percent Auto 0.5 % (0.2-1.2); Eosinophils Percent Auto 0.7 % (0-4.4); Hematocrit 31.5 % (37.0-47.0); Hemoglobin 9.5 g/dL (12.0-15.0); Immature Granulocyte Absolute 0.02 K/mm3 (0.00-0.031); Immature Granulocyte Percent A 0.4 % (0-0.5); Immature Platelet Fraction Pct 10.3 % (0.9-11.2); Lymphocytes Absolute Auto 1.21 K/mm3 (0.9-3.2); Lymphocytes Percent Auto 21.4 % (18.3-44.2); Mean Corpuscular HGB Conc 30.2 g/dl (32-36); Mean Corpuscular Volume 72.9 fl (80-100); Monocytes Absolute Auto 0.7 K/mm3 (0.1-0.6); Monocytes Percent Auto 12.2 % (2.6-8.5); Neutrophils Absolute Auto 3.7 K/mm3 (1.3-6.7); Neutrophils Percent Auto 64.8 % (45.5-73.1); Platelet Count Result 157 k/mm3 (150-375); Red Blood Count 4.32 M/mm3 (4.2-5.4); Red Cell Distribution Width 16.6 % (11.5-14.5); White Blood Count 5.7 K/mm3 (4.5-10.0)
[2022-09-28 12:52] LABS: Glucose 1 Hour PP 50gm Dose 77 mg/dL
[2022-09-28 13:14] LABS: Anisocytosis 1+ (NORMAL); Hypochromasia 1+ (NORMAL); Microcytosis 1+ (NORMAL); Platelet Estimate Adequate (Adequate); Schistocytes None Seen (NORMAL)
== END 2022-09-28 11:01 | disposition home or self-care (01) ==
PROVIDERS: Visit Provider Registered Nurse
DX: Z34.92 Encounter for supervision of normal pregnancy, unspecified, second trimester (principal); Z3A.00 Weeks of gestation of pregnancy not specified
CPT/HCPCS: 36415; 82947; 85025; 85055

== ENCOUNTER 2022-11-20 13:50 | Inpatient (IN) | payer OTHER, SELFPAY ==
[2022-11-20] VITALS (30 sets, daily range): BP systolic 117–148; BP diastolic 65–102; PULSE 74–98; RESP 18; TEMP 36.6–36.9; BMI 25.6
--- NOTE | 2022-11-20 12:40 | PC.NURSE ---
Pt given ice pack for headache. Offered food, but pt ate before coming in. Juice and tania crackers given.
[2022-11-20 12:45] LABS: Hematocrit 32.5 % (37.0-47.0); Mean Corpuscular HGB Conc 30.8 g/dl (32-36); Mean Corpuscular Hemoglobin 22.3 pg (26-34); Mean Corpuscular Volume 72.5 fl (80-100); Platelet Count Result 114 k/mm3 (150-375); Red Blood Count 4.48 M/mm3 (4.2-5.4); Red Cell Distribution Width 18.6 % (11.5-14.5); White Blood Count 5.8 K/mm3 (4.5-10.0)
[2022-11-20 12:46] LABS: Basophils Percent Auto 0.7 % (0.2-1.2); Eosinophils Percent Auto 0.7 % (0-4.4); Immature Granulocyte Absolute 0.02 K/mm3 (0.00-0.031); Immature Granulocyte Percent A 0.3 % (0-0.5); Immature Platelet Fraction Pct 18.5 % (0.9-11.2); Lymphocytes Absolute Auto 1.34 K/mm3 (0.9-3.2); Lymphocytes Percent Auto 23.1 % (18.3-44.2); Monocytes Absolute Auto 0.9 K/mm3 (0.1-0.6); Monocytes Percent Auto 14.8 % (2.6-8.5); Neutrophils Absolute Auto 3.5 K/mm3 (1.3-6.7); Neutrophils Percent Auto 60.4 % (45.5-73.1)
[2022-11-20 12:54] LABS: Alanine Aminotransferase 17 U/L (6-35); Albumin Level 3.1 g/dL (3.5-5.1); Alkaline Phosphatase 758 U/L (38-126); Anion Gap 5 mmol/L (8-16); Aspartate Amino Transferase 20 U/L (14-36); Bilirubin,Total 0.3 mg/dL (0.2-1.3); Blood Urea Nitrogen 10 mg/dL (7-17); Carbon Dioxide 20 mmol/L (22-30); Chloride 109 mmol/L (98-107); Estimated Glomerular Filt Rate > 60; Glucose 81 mg/dL (65-110); Potassium 3.4 mmol/L (3.4-5.0); Sodium 134 mmol/L (137-145); Uric Acid 4.3 mg/dL (2.5-7.5)
[2022-11-20 13:09] LABS: Creatinine Urine 443.3 mg/dL
[2022-11-20 13:14] LABS: Total Protein Urine Random < 5 mg/dL; Ur Ttl Prot Creatinine Ratio < 0.01 mg/mg (0-0.20)
[2022-11-20 13:23] LABS: Large Platelets Present
[2022-11-20 13:24] LABS: Anisocytosis 1+ (NORMAL); Ovalocytes 1+ (NORMAL); Schistocytes None Seen (NORMAL)
[2022-11-20] MEDS: ACETAMINOPHEN 500 MG TABLET 1000 MG PO (13:26)
--- NOTE | 2022-11-20 13:26 | PC.NURSE ---
Headache decreased from a 6 down to a 4 with the ice pack. Tylenol given po.
[2022-11-20 13:45] LABS: Appearance Urine Cloudy (Clear); Bacteria Urine 4+ /hpf; Bilirubin Urine 1+ (Negative); Blood Urine Negative (Negative); Color Urine Dark Yellow (Yellow); Glucose Urine UA Negative (Negative); Ketones Urine Trace mg/dL (Negative); Leukocyte Esterase Ur 1+ LEU/UL (Negative); Need Manual Microscopic Reviewed; Nitrate Urine Negative (Negative); Protein Urine 1+ mg/dL (Negative); RBC Urine 0-2 /hpf (0-2); Specific Grav Ur 1.029 (1.001-1.035); Squamous Epithelial Cell Urine Occasional /hpf (Few); pH Urine 6.5 (5.0-9.0)
[2022-11-20 13:46] LABS: Add Urine Microscopic? YES
--- NOTE | 2022-11-20 13:50 | PC.NURSE ---
Dr. Irwin was in to see pt and discussed that due to her blood pressures, platelet count, and headache she meets the criteria for induction of labor for gestational hypertension. SVE was performed and order received for Cervidil induction when a labor room is available. talked with pt that after the Cervidil she might still need another medicine called Cytotec to help ripen her cervix before she actually goes into labor.
--- NOTE | 2022-11-20 15:45 | PC.NURSE ---
Pt transferred to labor room 108 per wheelchair with personal belongings.
[2022-11-20] MEDS: DINOPROSTONE 10 MG VAG INSERT VAGINAL (16:59)
--- NOTE | 2022-11-20 18:05 | PM.IMHP ---
H&P: HPI History of Present Illness Date/Time: 11/20/22 18:05 Chief Complaint: Elevated blood pressures Narrative: Patient at 38 weeks call the office today due to elevated blood pressures of 150s over 90s. She has had 1 prior elevated pressure in October. She also complained of a headache which she was taking Tylenol she states it is not severe. Denies any scotomata or right upper quadrant pain. On Labor and delivery she had elevated labile pressures 120s to 140s over 70s to 90s. Labs were reviewed platelets 114 prior platelets were 137. Her protein to creatinine ratio was normal. Liver function tests normal. She was informed of her diagnosis of gestational hypertension and recommendation for induction of labor. Discussed risk benefits of induction of labor. tracing reassuring. GBS neg. Review of Systems Review of Systems: All systems reviewed & are unremarkable except as noted in HPI and below Constitutional: Constitutional: Reports no additional constitutional complaints and Denies headache(s) Eyes: Eyes: Denies spots in vision ENT: Reports system reviewed and no additional complaints, except as documented and Denies headache(s) Cardiovascular: Cardiovascular: Denies chest pain and Denies dyspnea Respiratory: Respiratory: Denies dyspnea Gastrointestinal: Gastrointestinal: Reports no additional gastrointestinal complaints Genitourinary: Genitourinary: Reports amenorrhea Musculoskeletal: Musculoskeletal: Reports no additional musculoskeletal complaints Integumentary/Breasts: Skin/Breast: Denies breast mass and Denies rash Neurologic: Denies headache(s) Psychiatric: Psychiatric: Reports no additional psychiatric complaints PMF Past Medical History Medical History Gestational hypertension Gestational [-induced] hypertension without significant proteinuria, complicating childbirth Healthy adult History of miscarriage x 2 12/2020 Hypertension during , antepartum and not yet delivered Vaginal delivery Surgical History Surgical History No pertinent past surgical history Family History Family History Mother Patient's mother is in good health Social History Social History Smoking status: Never smoker Second hand tobacco smoke exposure: No Alcohol intake: never Substance use: never Substance use type: marijuana Lack of Transportation: No Lack of Food: Never True Current Housing: I Have Housing Concerned About Future Housing: No Difficulty Paying Gas/Electric Bills: No Difficulty Paying for Meds: No Currently Unemployed: No Education: High School Diploma/GED Difficulty w/ Childcare or Family Care: No Living arrangements: with family Occupation/Education: occupation Gender identity (if verbalized by the patient): Female Sexual Orientation (if Verbalized by the Patient): Straight or Heterosexual Spiritual care concerns: No Meds Home Medications and Allergies Home Medications Medication Instructions Recorded Confirmed Type prenat.vits,mai,vfn-nfkz-bjvdw 1 tablet PO DAILY 07/27/21 11/20/22 History kppa-PY-[id number]-vit C-docusate sod 1 tablet PO DAILY 08/20/22 11/20/22 History 90 mg-1 mg-12 mcg-120 mg-50mg tablet Allergies Allergy/AdvReac Type Severity Reaction Status Date / Time Sulfa (Sulfonamide Allergy Unknown Rash Verified 11/15/22 08:52 Antibiotics) Vital Signs Vital Signs - 24 hr 11/20/22 12:01 11/20/22 12:15 11/20/22 12:30 Pulse Rate 79 89 87 Blood Pressure 133/89 126/89 124/91 H 11/20/22 12:45 11/20/22 13:01 11/20/22 13:16 Pulse Rate 94 76 78 Blood Pressure 139/96 H 136/76 130/71 11/20/22 13:30 11/20/22 13:46 11/20/22 14:01 Pulse Rate 86 82 94 Blood Pres
--- NOTE | 2022-11-20 18:16 | WPDANESEPP ---
Anes - Eval Pre Procedure Procedure: labor epidural Date/Time: 11/20/22 18:16 Surgeon: Alida Preop Diagnosis: pain during labor Pre Op Diagnosis: PIH Labs Patient Data Age: 27 Gender: F Height: 1.68 m Weight: 72 kg Last Vital Signs Pulse 82 11/20/22 18:00 BP 119/65 11/20/22 18:00 Allergies Allergy/AdvReac Type Severity Reaction Status Date / Time Sulfa (Sulfonamide Allergy Unknown Rash Verified 11/15/22 08:52 Antibiotics) Home Medications Medication Instructions Recorded Confirmed Type prenat.vits,mai,ecv-zpcx-ewfec 1 tablet PO DAILY 07/27/21 11/20/22 History hqbo-EA-[id number]-vit C-docusate sod 1 tablet PO DAILY 08/20/22 11/20/22 History 90 mg-1 mg-12 mcg-120 mg-50mg tablet Laboratory Tests 11/20/22 11/20/22 12:26 16:40 WBC 5.8 K/mm3 (4.5-10.0) RBC 4.48 M/mm3 (4.2-5.4) Hgb 10.0 L g/dL (12.0-15.0) Hct 32.5 L % (37.0-47.0) MCV 72.5 L fl (80-100) MCH 22.3 L pg (26-34) MCHC 30.8 L g/dl (32-36) RDW 18.6 H % (11.5-14.5) Plt Count 114 L k/mm3 (150-375) MPV TNP Immature Gran % (Auto) 0.3 % (0-0.5) Neut % (Auto) 60.4 % (45.5-73.1) Lymph % (Auto) 23.1 % (18.3-44.2) [place] % (Auto) 14.8 H % (2.6-8.5) Eos % (Auto) 0.7 % (0-4.4) Baso % (Auto) 0.7 % (0.2-1.2) Lymph # (Auto) 1.34 K/mm3 (0.9-3.2) [place] # (Auto) 0.9 H K/mm3 (0.1-0.6) Eos # (Auto) 0.0 K/mm3 (0-0.3) Baso # (Auto) 0.0 K/mm3 (0.0-0.1) Abs Immat Gran (auto) 0.02 K/mm3 (0.00-0.031) Absolute Neuts (auto) 3.5 K/mm3 (1.3-6.7) Absolute Nucleated RBC 0.0 K/mm3 (0.0-0.012) Nucleated RBC % 0.0 % (0.0-0.2) Platelet Estimate Slightly decreased (Adequate) Large Platelets Present % Immature Plt Fraction 18.5 H % (0.9-11.2) Anisocytosis 1+ (NORMAL) Ovalocytes 1+ (NORMAL) Schistocytes None seen (NORMAL) Sodium 134 L mmol/L (137-145) Potassium 3.4 mmol/L (3.4-5.0) Chloride 109 H mmol/L (98-107) Carbon Dioxide 20 L mmol/L (22-30) Anion Gap 5 L mmol/L (8-16) BUN 10 mg/dL (7-17) Creatinine 0.60 L mg/dL (0.7-1.0) Estim Creat Clear Calc Not Reportable Estimated GFR > 60 (59 - ) Glucose 81 mg/dL (65-110) Uric Acid 4.3 mg/dL (2.5-7.5) Calcium 8.0 L mg/dL (8.4-10.2) Total Bilirubin 0.3 mg/dL (0.2-1.3) AST 20 U/L (14-36) ALT 17 U/L (6-35) Alkaline Phosphatase 758 H U/L (38-126) Total Protein 6.0 L g/dL (6.3-8.2) Albumin 3.1 L g/dL (3.5-5.1) Urine Color Dark yellow (Yellow) Urine Appearance Cloudy H (Clear) Urine pH 6.5 (5.0-9.0) Ur Specific [place] 1.029 (1.001-1.035) Urine Protein 1+ H mg/dL (Negative) Urine Glucose (UA) Negative mg/dL (Negative) Urine Ketones Trace H mg/dL (Negative) Ur Blood (Man) Negative (Negative) Urine Nitrate Negative (Negative) Urine Bilirubin 1+ H (Negative) Urine Urobilinogen 1.0 mg/dL (<2.0) Add Ur Microanalysis Reviewed Leukocyte Esterase Rfl 1+ H MARKUS/UL (Negative) Urine RBC 0-2 /hpf (0-2) Urine WBC 11-20 H /hpf Ur Squamous Epith Cells Occasional /hpf (Few) Urine Bacteria 4+ H /hpf Urine Casts 3-5 U Random Total Protein < 5 mg/dL Urine Creatinine 443.3 mg/dL Protein/Creat Ratio 2 < 0.01 mg/mg (0-0.20) RPR Pending Blood Type Pending Antibody Screen Pending Patient hx anesthesia problems: none Family hx anesthesia problems: none Results Review: All pre-operative results and documents have been reviewed as part of the pre-operative evaluation. [facility] Past Medical History
[2022-11-21] VITALS (69 sets, daily range): BP systolic 94–165; BP diastolic 66–108; PULSE 66–115; RESP 16; TEMP 36.5–37.1; O2SAT 88–100
[2022-11-21] MEDS: LACTATED RINGERS 1,000 ML 125 ML IV CONT ×2 (02:44→03:28)
--- NOTE | 2022-11-21 06:31 | PM.OBPNLAB ---
Pain Control Date/time seen: 11/21/22 06:31 Comments: FHT 125, Cat 2, ?leakage at 0602, on exam, cervix complete, 0 station, no BOW palpated, will call SROM 0602, no signs of meconium.
[2022-11-21] MEDS: OXYTOCIN 30 UNITS/NS 500 ML 30 UNITS/500 ML BAG 999 UNITS IV CONT (07:27)
[2022-11-21] MEDS: OXYTOCIN 30 UNITS/NS 500 ML 30 UNITS/500 ML BAG 125 UNITS IV CONT (07:47)
[2022-11-21 08:11] LABS: Rapid Plasma Reagin Non-Reactive (NonReactive)
--- NOTE | 2022-11-21 08:28 | P.PCNOB_ITS ---
OB - Delivery Note Procedure Delivery date: 11/21/22 Procedure: Spontaneous vaginal delivery Events: Gestational Hypertension Induction method: Per Cervidil Protocol Delivery monitor: External FHT Route of delivery: Laceration Description: Perineal - 2nd Degree Delivery repair: vicryl (3 0 Vicryl) Specimen: Yes (Placenta and cord) Quantitative Blood Loss (ml): 200 Anesthesia type: Epidural Disposition: Floor Complications: None Narrative: Patient admitted for medical induction of labor due to gestational hypertension. Cervix was unfavorable and Cervidil was initiated. She progressed to spontaneous labor with the Cervidil and she dilated to 380% at that time an epidural was requested and placed. She had the Cervidil removed. She progressed rapidly into active labor. The tracing had early decelerations. At that time there was questionable rupture of membranes and she also had a bowel movement. She was checked after then in preparation to do assisted rupture of membranes but no bag of water was palpated. Therefore SROM was at 6:02 a.m. she progressed to complete. At that time she did not have much sensation to push from the recently placed epidural. She was allowed to labor down and she pushed 3 times and delivered a female infant at 7:21 a.m.. was in the ROP presentation. Nose and mouth were suction at the perineum with the bulb. Tight nuchal cord was surgically reduced. The anterior shoulder was delivered and the rest the infant was delivered. Infant was vigorously crying and placed on maternal abdomen. Cord blood and cord gases were obtained. Placenta delivered spontaneously and intact. She sustained a second-degree perineal laceration repaired with 3-0 Vicryl. Will send placenta due to gestational hypertension. Patient tolerated procedure well. [place] Baby Date of : 11/21/22 Time of : 07:21 Weeks of gestation at delivery: 38 gender: Female Weight (pounds): 6 Weight (ounces): 2 presentation: vertex position: Right Occiput Posterior Placenta delivery description: Spontaneous Cord Vessel Description: 3 Vessels, Tight, Reduced (Surgically) and Clamped/Cut score one minute: 8 score five minutes: 9 AMG Delivery Billing Delivery Delivery: Delivery Charge
[2022-11-21] MEDS: NIFEdipine 10 MG CAPSULE PO (09:11)
[2022-11-21] MEDS: IBUPROFEN 600 MG TABLET PO ×2 (10:03→21:54)
[2022-11-21] MEDS: WITCH HAZEL 40 PADS 1 PAD TOPICAL (10:04)
[2022-11-21] MEDS: BENZOCAINE 20% AER SPR (*SP) 56 GM CAN 1 SPRAY TOPICAL (10:04)
--- NOTE | 2022-11-21 10:22 | PC.NURSE ---
Patient transferred to post room #288 via wheelchair. Support person present. Oriented to unit, room, information board, rooming in, admission packet and security measures. Patient verbalizes understanding.
[2022-11-21] MEDS: NIFEdipine 30 MG TAB.ER.24 PO (11:35)
[2022-11-21] MEDS: MULTIVIT/MIN/PREN/FOL AC/IRON TABLET 1 TAB PO (11:35)
--- NOTE | 2022-11-21 16:00 | PC.NURSE ---
1100-1130Introductions were made, then consulted with patient to assess needs related to . Mother led the conversation with her?plans to feed?her infant and the?experience so far. Mother did not breastfeed her first infant which is now 10 months old. Infant appears to have a tight lower frenulum. Mother works well with her with encouragement and education. Mother choses to bottle feed downstairs as she believed she didn't have enough milk for her baby. Nursery RN supplied mother with a bottle and mother fed her infant 43 mls. We discussed the risks and benefits of bottle feeding early with how to protect the milk supply. Encouraged understanding of the benefits of skin to skin (demonstrating unwrapping and placing upright on her chest), stimulating with massage touch, changing positions to encourage wakefulness, how to watch for early feeding cues, responsive feeding, feeding on demand (aiming for 8-12 times in 24 hours, about every 2-3 hours), milk production, building/maintaining a milk supply, duration of feeding, signs of adequate intake/output and how to record on the feeding sheet. Reviewed positioning and ear, shoulder, hip alignment, supporting the breast to facilitate a deep latch, asymmetrical latch (off-center), leading with the chin with a big, open, wide gape and body close to mother. latched optimally to the left breast in football position, however; did not maintain the deep latch. Education given to mother of how to visualize suck/swallow ratios and listen for drinking at the breast. Infant did audibly swallow once with an optimal latch. Nipple care reviewed with optimal latch and good positioning. Reviewed good handwashing when or touching the breast/nipples to prevent infection. Resources used to facilitate learning were used with the visual handouts, tool, mom and baby guide. Mother voiced understanding of skin to skin, stimulating with massage touch, responsive feedings, hand expressed colostrum, talking to to encourage if it has been 2 -2.5 hours since the start of the last , to call if does not latch, or if there is discomfort with . Resources provided for inpatient/outpatient with feeding sheet and the mom/baby guide. Mother voiced understanding of information, demonstrated learning and will call if there is a request for assistance. Reported to primary RN.
[2022-11-22 01:30] VITALS: BP 139/103; PULSE 78; RESP 18; TEMP 36.9; O2SAT 100
[2022-11-22 05:34] VITALS: BP 140/93; PULSE 72; RESP 18; TEMP 36.5; O2SAT 100
[2022-11-22 05:54] LABS: Hematocrit 33.3 % (37.0-47.0); Hemoglobin 10.1 g/dL (12.0-15.0)
[2022-11-22] MEDS: ACETAMINOPHEN 325 MG TABLET 650 MG PO (08:37)
[2022-11-22] MEDS: IBUPROFEN 600 MG TABLET PO ×2 (08:40→19:44)
[2022-11-22 08:45] VITALS: BP 133/92; PULSE 77; RESP 16; TEMP 36.4; O2SAT 100
[2022-11-22 08:51] LABS: Basophils Percent Auto 0.5 % (0.2-1.2); Eosinophils Absolute Auto 0.1 K/mm3 (0-0.3); Eosinophils Percent Auto 1.2 % (0-4.4); Hematocrit 35.4 % (37.0-47.0); Hemoglobin 10.7 g/dL (12.0-15.0); Immature Granulocyte Absolute 0.03 K/mm3 (0.00-0.031); Immature Granulocyte Percent A 0.3 % (0-0.5); Immature Platelet Fraction Pct 17.3 % (0.9-11.2); Lymphocytes Absolute Auto 2.46 K/mm3 (0.9-3.2); Lymphocytes Percent Auto 28.5 % (18.3-44.2); Mean Corpuscular HGB Conc 30.2 g/dl (32-36); Mean Corpuscular Hemoglobin 21.7 pg (26-34); Mean Corpuscular Volume 71.8 fl (80-100); Monocytes Absolute Auto 1.1 K/mm3 (0.1-0.6); Monocytes Percent Auto 12.3 % (2.6-8.5); Neutrophils Percent Auto 57.2 % (45.5-73.1); Platelet Count Result 120 k/mm3 (150-375); Red Blood Count 4.93 M/mm3 (4.2-5.4); Red Cell Distribution Width 18.5 % (11.5-14.5); White Blood Count 8.6 K/mm3 (4.5-10.0)
[2022-11-22 08:58] LABS: Alanine Aminotransferase 17 U/L (6-35); Alkaline Phosphatase 603 U/L (38-126); Anion Gap 1 mmol/L (8-16); Aspartate Amino Transferase 30 U/L (14-36); Bilirubin,Total 0.4 mg/dL (0.2-1.3); Blood Urea Nitrogen 5 mg/dL (7-17); Calcium 8.2 mg/dL (8.4-10.2); Carbon Dioxide 23 mmol/L (22-30); Chloride 108 mmol/L (98-107); Estimated CRCL calculation 113 ml/min; Estimated Glomerular Filt Rate > 60; Glucose 78 mg/dL (65-110); Potassium 3.9 mmol/L (3.4-5.0); Sodium 132 mmol/L (137-145); Uric Acid 4.3 mg/dL (2.5-7.5)
[2022-11-22 09:18] LABS: Anisocytosis 1+ (NORMAL); Ovalocytes 1+ (NORMAL)
[2022-11-22 09:19] LABS: Large Platelets Present; Schistocytes None Seen (NORMAL)
[2022-11-22] MEDS: NIFEdipine 30 MG TAB.ER.24 PO (09:47)
[2022-11-22] MEDS: MULTIVIT/MIN/PREN/FOL AC/IRON TABLET 1 TAB PO (09:47)
[2022-11-22 12:15] VITALS: BP 128/89; PULSE 85; RESP 16; TEMP 36.9; O2SAT 100
--- NOTE | 2022-11-22 15:05 | PC.NURSE ---
[id number] Purposefully rounded to assess needs. Mother states is latching well on the left and it feels pinching on the right. Encouraged [id number] and calling for assistance with latching with the next feeding. Name written on the communication board to assist with requesting with the call light. [phone] Mother requested a consult with latching on her right breast. Mother works well with her infant with encouragement and education. Encouraged abya-[id number]-[id number] next to her breast covering with a blanket to keep her infant warm to breastfeed. Reviewed positioning and ear, shoulder, hip alignment, supporting the breast to facilitate a deep latch, asymmetrical latch (off-center), leading with the chin with a big, open, wide gape and body close to mother. Infant latched optimally to the right breast in football position after a few attempts. at times repositions to a shallow latch. Reviewed with mother supporting her breast with the sandwich hold and supporting her position to keep a deep latch. Education given to mother of how to visualize suck/swallow ratios and listen for drinking at the breast. Infant was able to maintain latch without discomfort to mother. Nipple care reviewed with optimal latch and good positioning. Mother voiced understanding of skin to skin, stimulating with massage touch, responsive feedings, hand expressed colostrum, talking to infant to encourage if it has been 2 -2.5 hours since the start of the last , to call if infant does not latch, or if there is discomfort with . Mother voiced understanding of information, demonstrated learning and will call if there is a request for assistance. Reported to primary RN.
--- NOTE | 2022-11-22 16:02 | PM.OBPNVD ---
OB - PN: Subj Subjective Date/time seen: 11/22/22 16:02 Interval history: She reports a headache which she reports 10/20 has had it since yesterday. Tylenol is not helping. Denies any scotomata or right upper quadrant pain. She was started on daily Procardia yesterday. Patient comments: pain well controlled, tolerating diet and other (Decreasing lochia.) [place] baby status: doing well and nursing well [place] feeding status: exclusively breast feeding OB - PN: Obj Data Labs 11/22/22 08:31 11/22/22 08:31 Labs: Laboratory Results - last 24 hr 11/22/22 11/22/22 05:46 08:31 WBC 8.6 RBC 4.93 Hgb 10.1 L 10.7 L Hct 33.3 L 35.4 L MCV 71.8 L MCH 21.7 L MCHC 30.2 L RDW 18.5 H Plt Count 120 L MPV TNP Immature Gran % (Auto) 0.3 Neut % (Auto) 57.2 Lymph % (Auto) 28.5 [place] % (Auto) 12.3 H Eos % (Auto) 1.2 Baso % (Auto) 0.5 Lymph # (Auto) 2.46 [place] # (Auto) 1.1 H Eos # (Auto) 0.1 Baso # (Auto) 0.0 Abs Immat Gran (auto) 0.03 Absolute Neuts (auto) 5.0 Absolute Nucleated RBC 0.0 Nucleated RBC % 0.0 Platelet Estimate Slightly decreased Large Platelets Present % Immature Plt Fraction 17.3 H Anisocytosis 1+ Ovalocytes 1+ Schistocytes None seen Sodium 132 L Potassium 3.9 Chloride 108 H Carbon Dioxide 23 Anion Gap 1 L BUN 5 L D Creatinine 0.60 L Estim Creat Clear Calc 113 Estimated GFR > 60 Glucose 78 Uric Acid 4.3 Calcium 8.2 L Total Bilirubin 0.4 AST 30 ALT 17 Alkaline Phosphatase 603 H Total Protein 6.0 L Albumin 3.0 L OB - PN A/P Assessment and Plan (1) hypertension: Code(s): O16.5 - Unspecified maternal hypertension, complicating the puerperium Status: Acute Assessment and Plan: Will check preeclamptic labs. Preeclamptic labs were normal. Will try additional pain medicine. Plan day: 1 Plan: routine care Comments: Patient doing well. Routine care. Time Spent With Patient Time: Total time spent is greater than 50% in coordination of care (as documented) at patient's floor/unit and/or counseling patient: Exam Psych: Affect: normal affect Other: Abd: fundus firm below umbilicus, nontender Perineum: healing Ext: nontender
[2022-11-22 16:10] VITALS: BP 118/80; PULSE 80; RESP 18
[2022-11-22] MEDS: HYDROcodone/acetaminophen (*CRX) 5-325 MG TABLET 1 TAB PO (16:25)
[2022-11-22] MEDS: DOCUSATE SODIUM 100 MG CAPSULE PO (19:44)
[2022-11-22 20:15] VITALS: BP 138/100; PULSE 80; RESP 18; TEMP 36.7; O2SAT 100
[2022-11-23] VITALS: BP 137/95
[2022-11-23 05:39] VITALS: BP 131/97
--- NOTE | 2022-11-23 07:23 | PM.OBPNVD ---
OB - PN: Subj Subjective Date/time seen: 11/23/22 07:23 Interval history: She denies headaches, no scotomata or RUQ pain. Lochia decreasing, no leg pain. Patient comments: tolerating diet and other (Decreasing lochia.) [place] baby status: doing well and nursing well [place] feeding status: exclusively breast feeding OB - PN: Obj Data Labs 11/22/22 08:31 11/22/22 08:31 Labs: Laboratory Results - last 24 hr 11/22/22 08:31 WBC 8.6 RBC 4.93 Hgb 10.7 L Hct 35.4 L MCV 71.8 L MCH 21.7 L MCHC 30.2 L RDW 18.5 H Plt Count 120 L MPV TNP Immature Gran % (Auto) 0.3 Neut % (Auto) 57.2 Lymph % (Auto) 28.5 [place] % (Auto) 12.3 H Eos % (Auto) 1.2 Baso % (Auto) 0.5 Lymph # (Auto) 2.46 [place] # (Auto) 1.1 H Eos # (Auto) 0.1 Baso # (Auto) 0.0 Abs Immat Gran (auto) 0.03 Absolute Neuts (auto) 5.0 Absolute Nucleated RBC 0.0 Nucleated RBC % 0.0 Platelet Estimate Slightly decreased Large Platelets Present % Immature Plt Fraction 17.3 H Anisocytosis 1+ Ovalocytes 1+ Schistocytes None seen Sodium 132 L Potassium 3.9 Chloride 108 H Carbon Dioxide 23 Anion Gap 1 L BUN 5 L D Creatinine 0.60 L Estim Creat Clear Calc 113 Estimated GFR > 60 Glucose 78 Uric Acid 4.3 Calcium 8.2 L Total Bilirubin 0.4 AST 30 ALT 17 Alkaline Phosphatase 603 H Total Protein 6.0 L Albumin 3.0 L OB - PN A/P Assessment and Plan (1) hypertension: Code(s): O16.5 - Unspecified maternal hypertension, complicating the puerperium Status: Acute Assessment and Plan: No pre- e symptoms. Labs normal yesterday. Blood pressures elevated. Will increase Procardia. If bp improved then will allow discharge this afternoon. Plan day: 2 Time Spent With Patient Time: Total time spent is greater than 50% in coordination of care (as documented) at patient's floor/unit and/or counseling patient: Time with patient: less than 15 minutes Exam Const: General: comfortable Resp: Effort & Inspection: normal respiratory effort GI: Inspection: normal to inspection Other: fundus -2umb nontender Psych: Affect: normal affect Other: Abd: fundus firm below umbilicus, nontender Perineum: healing Ext: nontender
[2022-11-23] MEDS: MULTIVIT/MIN/PREN/FOL AC/IRON TABLET 1 TAB PO (07:31)
[2022-11-23] MEDS: NIFEdipine 30 MG TAB.ER.24 60 MG PO (07:31)
[2022-11-23] MEDS: LANOLIN (LANSINOH) 7.5 GM CREAM 1 APPLIC TOPICAL (07:32)
[2022-11-23 08:30] VITALS: BP 136/82; PULSE 80; RESP 18; TEMP 37.2; O2SAT 100
[2022-11-23] MEDS: IBUPROFEN 600 MG TABLET PO (09:20)
[2022-11-23] MEDS: ACETAMINOPHEN 325 MG TABLET 650 MG PO (09:21)
[2022-11-23 09:23] VITALS: BP 124/83; PULSE 81; RESP 16
--- NOTE | 2022-11-23 12:10 | PC.NURSE ---
[id number] Mother led the conversation with her experience and plan to feed her infant so far and her ability to independently latch infant optimally without discomfort. Patient requested assistance before going home. Encouraged mother to place infant [id number], feeding cues were visualized and mother was assisted slightly with latching optimally to the right breast using football positioning without pain, then after 10 minutes infant was offered the left breast. Infant effectively breastfed without pain to mother and she voiced understanding of how to visualize suck/swallow and listen for drinking at the breast. was able to maintain latch without discomfort to mother. Nipple care reviewed with optimal latch and good positioning. Reminded mother to use good handwashing technique to prevent infection. Mother is feeding appropriately for growth of and understands stimulating infant to eat if needed. has had appropriate feedings in the last 24 hours meets the outcomes for weight, output and jaundice at this time, however, we discussed the weight loss of 8.90% and the importance of frequently. Mother stated that she fed the a bottle last night and is comfortable with supplementing if needed. Mother states she is confident to continue effectively her infant at home and when to call for assistance. Reinforced understanding of milk production, transition of milk, signs of adequate intake, transition of stool, prevention/relief of engorgement, responsive watching for feeding cues, the different methods of stimulating infant to breastfeed on demand often every 1-3 hours, community resources, and when to call a provider using the resource of the mom and baby guide. Mother voiced understanding of the education shared.
--- NOTE | 2022-12-17 17:29 | PM.OBDSVD ---
DS: Admitting Diagnosis Discharge Date 11/23/22 Admitting Diagnosis Gestational hypertension DS: Discharge Diagnosis Discharge Diagnosis (1) Gestational hypertension: Code(s): O13.9 - Gestational [-induced] hypertension without significant proteinuria, unspecified trimester Status: Acute OB - DS: Summary Hospital Course Hospital Course: She was admitted for medical induction of labor for gestational hypertension. She had an uncomplicated vaginal delivery. She did well . She did have persistant elevated blood pressures without severe symptoms of pre- eclampsia She was started on Procardia. PIH labs normal. Blood pressures improved. She was discharged to home with pre- eclampsia precautions. OB Procedures : Ultrasound OB Procedures Intrapartum: Spontaneous Vag Delivery OB Procedures: : None Peripartum Data Infant Delivery Method: Natural Vaginal complications: none Status at Discharge Functional status at discharge: independent ambulation Time Spent with Patient Time attestation: Total time spent providing and/or coordinating discharge services: Exam Const: General: cooperative Orientation/consciousness: oriented to person, oriented to place and oriented to time HENMT: Face/Nose/Sinus: Normal external nose present Eyes: General: appearance normal, both eyes and all related structures Resp: Effort & Inspection: normal respiratory effort GI: Inspection: normal to inspection Skin: General skin exam: normal color Neuro: General: oriented to person, oriented to place and oriented to time Extrem: General: normal to inspection and no calf tenderness Psych: Appearance: grossly normal Mental Status: mental status grossly normal DS: Data Data Completed and Pending Completed studies during hospitalization: Pending at discharge 11/21/22 07:27 Surgical [PTH] Routine Discharge Plan Discharge Attending physician on discharge: Ehsan Irwin Consulting providers: Kushal Chapman Discharging Clinician: Ehsan Irwin Anticipated Discharge Date/Time: 11/23/22 11:36 Patient Disposition: Home, Self-Care Activity: may shower and pelvic rest Diet: regular Discharge Instructions: Recommend taking blood pressure at home daily. Call if blood pressure is persistently 1 55/95. Call if any symptoms of severe headache not relieved with Tylenol any white spots in vision or persistent right upper quadrant pain. Keep follow-up appointment at Labor and delivery and also make appointment for 1 week to be seen in doctor's office. Education: Mom and Baby Guide Given to: Follow-Up: Call your delivering provider's office for an appointment to be seen in: 1 Week Mom and baby should come to the [facility] for the follow-up appointment. Appointment Date/Time: November 24, 2022 at 8:00 am What to expect at your follow-up visit: Blood Pressure Check and Physical Assessment Call [phone] if you are unable to keep your appointment time. BREAST CARE: * Wear a snug supportive bra. * For engorgement discomfort: Breast Feeding: * Apply warm moist washcloths * Express milk as needed to relieve engorgement * Wear loose clothing * For sore nipples: * Identify correct latch-on * Apply warm moist washcloths before and after nursing * Air dry nipples after nursing * May apply Lansinoh cream to nipples PERINEAL CARE: * Until bleeding stops, use your martin bottle after urinating * Change your pad frequently throughout the day * You may take sitz baths several times a day (fill your bathtub with warm water and soak for 20 minutes.) Do NOT bathe in the water * No tub baths until seen by your physician - You may shower ACTIVITY: * Rest as much as possible. * Do not exercise or lift anything heavier than your baby (such as laundry or other children.) * Avoid stair
== END 2022-11-23 13:47 | disposition home or self-care (01) | DRG 807 ==
LOC: ANHOBOP 15:48 → ANHLDR 15:48 → ANHOB2 11-21 10:31
PROVIDERS: Admitting Provider Obstetrics & Gynecology; Visit Provider Obstetrics & Gynecology
DX: O13.4 Gestational [pregnancy-induced] hypertension without significant proteinuria, complicating childbirth (principal); Z37.0 Single live birth; O69.1XX0 Labor and delivery complicated by cord around neck, with compression, not applicable or unspecified; O70.1 Second degree perineal laceration during delivery; Z3A.38 38 weeks gestation of pregnancy; O16.5 Unspecified maternal hypertension, complicating the puerperium
CPT/HCPCS: 36415; 59025; 80053; 81001; 82570; 84156; 84550; 85014; 85018; 85025; 85055; 86592; 86850; 86900; 86901; 87086; 88307; A9270; J2590; J2795; J7120

== ENCOUNTER 2024-07-10 10:01 | Outpatient (CLI) | payer OTHER, SELFPAY | END 2024-07-10 10:02 | disposition home or self-care (01) | LOC: MICIMG 10:01 | PROVIDERS: PCP Nurse Practitioner Obstetrics & Gynecology; Visit Provider Nurse Practitioner Obstetrics & Gynecology | DX: N63.0 Unspecified lump in unspecified breast (principal) | CPT/HCPCS: 76642 ==

== ENCOUNTER 2025-02-03 01:07 | Day surgery (SDC) | payer OTHER, SELFPAY ==
[2024-11-23 14:38] VITALS: BMI 23.6
[2025-01-18 14:34] VITALS: BMI 23.6
[2025-02-03 09:15] VITALS: BP 126/88; PULSE 101; RESP 16; TEMP 36.9; O2SAT 100; BMI 22.8
[2025-02-03] MEDS: LACTATED RINGERS 1,000 ML 150 ML IV CONT (09:23)
--- NOTE | 2025-02-03 09:52 | P.PNAN_ITS ---
Anes - Initial Pre Proc Eval Procedure: Operation Date: 02/03/25 10:30 Proposed Procedures p Diagnostic Colonoscopy - Darrell Morley MD Date/Time: 02/03/25 09:52 Surgeon: Darrell Morley MD Pre Op Diagnosis: Hemorrhage of anus and rectum Patient Data Age: 29 Gender: F Height: 1.65 m Weight: 62.3 kg Last Vital Signs Temp 36.9 C 02/03/25 09:15 Pulse 101 H 02/03/25 09:15 Resp 16 02/03/25 09:15 BP 126/88 02/03/25 09:15 Pulse Ox 100 02/03/25 09:15 O2 Del Method Room Air 02/03/25 09:15 Allergies Allergy/AdvReac Type Severity Reaction Status Date / Time Sulfa (Sulfonamide Allergy Unknown Rash Verified 02/03/25 09:12 Antibiotics) Home Medications ?Medication ?Instructions ?Recorded ?Confirmed ?Type No Home Medications 06/19/24 11/23/24 H istory Patient hx anesthesia problems: none Family hx anesthesia problems: none Results Review: All pre-operative results and documents have been reviewed as part of the pre- operative evaluation. [facility] Past Medical History Medical History Encounter for gynecological examination (general) (routine) with abnormal findings Vaginal discharge Breast lump Gestational [-induced] hypertension without significant proteinuria, complicating childbirth and not yet delivered Gestational hypertension Vaginal delivery x2 Hypertension during , antepartum History of miscarriage x 2 12/2020 Healthy adult Surgical History Surgical History No pertinent past surgical history Family History Family History Mother Patient's mother is in good health Social History Social History Smoking status: Never smoker Second hand tobacco smoke exposure: No Alcohol intake: never Substance use: never Substance use type: does not use Lack of Transportation: No Lack of Food: Never True Current Housing: I Have Housing Concerned About Future Housing: No Difficulty Paying Gas/Electric Bills: No Difficulty Paying for Meds: No Currently Unemployed: No Education: High School Diploma/GED Difficulty w/ Childcare or Family Care: No Living arrangements: with family Occupation/Education: occupation Gender identity (if verbalized by the patient): Female Sexual Orientation (if Verbalized by the Patient): Straight or Heterosexual Spiritual care concerns: No Anes - Eval Final PreProcedure Day of Procedure 02/03/25 09:52 Patient weight: normal Heart: regular rate and rhythm Lungs: clear to auscultation Airway: Mallampati scale class II Neurological: alert and oriented Last oral intake: >/= 8 hours ASA classification: I Emergent: no Anesthetic plan: proceed Anesthesia type and monitoring: general GIVS and standard monitoring Results Review: All pre-operative results and documents have been reviewed as part of the pre- operative evaluation. Informed Consent: The patient's anesthetic plan and its attendant risks and benefits were discussed with the patient/family/POA. Questions were solicited and answers provided to the satisfaction of the patient/family/POA.
--- NOTE | 2025-02-03 10:43 | P.HP_ITS ---
H&P: HPI History of Present Illness Date/Time: 02/03/25 10:43 Chief Complaint: Rectal bleeding Narrative: this patient has been complaining of several months of intermittent rectal bleeding, bright red type. This is not associated with abdominal pain, weight loss or severe change in bowel habits and she is now referred for colonoscopy. Review of Systems Review of Systems: All systems reviewed & are unremarkable except as noted in HPI and below PMFSH Past Medical History Medical History Encounter for gynecological examination (general) (routine) with abnormal findings Vaginal discharge Breast lump Gestational [-induced] hypertension without significant proteinuria, complicating childbirth and not yet delivered Gestational hypertension Vaginal delivery x2 Hypertension during , antepartum History of miscarriage x 2 12/2020 Healthy adult Surgical History Surgical History No pertinent past surgical history Family History Family History Mother Patient's mother is in good health Social History Social History Smoking status: Never smoker Second hand tobacco smoke exposure: No Alcohol intake: never Substance use: never Substance use type: does not use Lack of Transportation: No Lack of Food: Never True Current Housing: I Have Housing Concerned About Future Housing: No Difficulty Paying Gas/Electric Bills: No Difficulty Paying for Meds: No Currently Unemployed: No Education: High School Diploma/GED Difficulty w/ Childcare or Family Care: No Living arrangements: with family Occupation/Education: occupation Gender identity (if verbalized by the patient): Female Sexual Orientation (if Verbalized by the Patient): Straight or Heterosexual Spiritual care concerns: No Meds Home Medications and Allergies Home Medications ?Medication ?Instructions ?Recorded ?Confirmed ?Type No Home Medications 06/19/24 11/23/24 H istory Allergies Allergy/AdvReac Type Severity Reaction Status Date / Time Sulfa (Sulfonamide Allergy Unknown Rash Verified 02/03/25 09:12 Antibiotics) Vital Signs Vital Signs - 24 hr 02/03/25 09:15 Temperature 98.5 F Pulse Rate 101 H Respiratory Rate 16 Blood Pressure 126/88 Pulse Oximetry 100 Oxygen Delivery Room Air Exam Const: General: cooperative and healthy appearing Resp: Effort & Inspection: normal respiratory effort and able to speak in complete sentences Auscultation: clear to auscultation bilaterally Cardio: Rate: regular rate Rhythm: regular rhythm GI: Inspection: normal to inspection GI Palp: No No hepatosplenomegaly present Auscultation: normal bowel sounds Rectal Exam: deferred Skin: General skin exam: normal color Psych: Appearance: grossly normal Mental Status: mental status grossly normal Assessment and Plan Assessment and plan (1) Rectal bleeding: Code(s): K62.5 - Hemorrhage of anus and rectum Status: Acute Assessment and Plan: The patient is deemed a good candidate for the procedure. Consent signed. Will proceed.
[2025-02-03] MEDS: SIMETHICONE ORAL SUSPENSION 20 MG/0.3 ML 30 ML BOTTLE 0.6 ML IRRIGATION (10:52)
[2025-02-03 10:54] LABS: BEDSIDEPREGUCG Negative (Negative)
[2025-02-03 11:00] VITALS: BP 93/47; PULSE 97; RESP 22; O2SAT 100
[2025-02-03 11:10] VITALS: BP 117/77; PULSE 88; RESP 24; O2SAT 100
[2025-02-03 11:20] VITALS: BP 117/80; PULSE 83; RESP 20; O2SAT 100
== END 2025-02-03 11:26 | disposition home or self-care (01) ==
PROVIDERS: PCP Nurse Practitioner Family; Referring Provider Nurse Practitioner Family; Visit Provider Internal Medicine Gastroenterology
PROC: 0DJD8ZZ Inspection of Lower Intestinal Tract, Via Natural or Artificial Opening Endoscopic (ICD-10-PCS; CPT 45378; principal; 2025-02-03 10:30)
DX: K62.5 Hemorrhage of anus and rectum (principal); K64.8 Other hemorrhoids
CPT/HCPCS: 45378; A9270; J2704; J7120